=== PATIENT | female | born 1960 | race Caucasian/White ===

== ENCOUNTER 2021-07-30 09:48 | Day surgery (SDC) | payer MEDICAID ==
[2021-07-28 14:02] LABS: BASOPHILS # (AUTO) 0.2 X10'3 (0-0.2); BASOPHILS % (AUTO) 1.2 % (0-1); EOSINOPHILS # (AUTO) 1.6 X10'3 (0-0.9); EOSINOPHILS % (AUTO) 9.9 % (0-6); HEMATOCRIT 36.5 % (35.0-45.0); LYMPHOCYTES # (AUTO) 4.6 X10'3 (1.1-4.8); LYMPHOCYTES % (AUTO) 28.2 % (21-51); MEAN CORPUSCULAR HGB CONC 32.9 g/dL (33.0-36.5); MEAN CORPUSCULAR VOLUME 94.4 FL (78-98); MEAN PLATELET VOLUME 7.6 FL (7.4-10.4); MONOCYTES # (AUTO) 0.8 X10'3 (0-0.9); MONOCYTES % (AUTO) 4.8 % (2-12); NEUTROPHILS # (AUTO) 9.1 X10'3 (1.8-7.7); NEUTROPHILS % (AUTO) 55.9 % (42-75); PLATELET COUNT 429 X10'3 (140-440); RED BLOOD COUNT 3.87 X10'6 (4.20-5.60); RED CELL DISTRIBUTION WIDTH 13.8 % (11.5-14.5); WHITE BLOOD COUNT 16.3 X10'3 (4.5-11.0)
[2021-07-28 14:21] LABS: APTT 27 SECONDS (22-32)
[2021-07-28 14:27] LABS: ALANINE AMINOTRANSFERASE 27 U/L (12-78); ALBUMIN/GLOBULIN RATIO 1.3 (1.1-1.5); ALKALINE PHOSPHATASE 121 IU/L (46-116); ANION GAP 11 (8-16); ASPARTATE AMINO TRANSFERASE 28 U/L (10-37); BILIRUBIN,TOTAL 0.1 MG/DL (0.1-1.0); BLOOD UREA NITROGEN 18 MG/DL (7-18); BUN/CREATININE RATIO 18.6 (6.6-38.0); CALCIUM 9.3 MG/DL (8.5-10.1); CHLORIDE 99 MMOL/L (99-107); CREATININE 0.97 MG/DL (0.40-0.90); GLUCOSE 107 MG/DL (70-104); SODIUM 138 MMOL/L (135-145); TOTAL CARBON DIOXIDE 27.6 MMOL/L (24-32); TOTAL PROTEIN 7.2 G/DL (6.4-8.2); eGFR 58 ML/MIN
[~2021-07-30] VITALS: Ht 162.6 cm; Wt 75.6 kg
[2021-07-30] VITALS (19 sets, daily range): BP systolic 104–136; BP diastolic 43–75
[~2021-07-30 09:48] MED LIST: ATOR20TA PO; BACL10TA2 PO; BETH25TA43 PO; CLON-528 PO; COM10T PO; CYCL-394 PO; DICY10CA88 PO; DOCU250C96 PO; ESOM40CA PO; ESTR1TAB50 PO; GUAI600T45 PO; HYDR50TA4 PO; LOP25T PO; LORA-512 PO; METO10TA3 PO; MONT10TA21 PO; NORCO10T PO; THYR90TA PO; TRAM50TA2 PO; ZALE10CA PO; ZOLM5SPR5 NS
[2021-07-30] MEDS ORDERED: glucagon, human recombinant 1mg kit SUBCUT PRN (10:35)
[2021-07-30] MEDS ORDERED: insulin Lispro (HumaLOG) vial - multi-dose SQ SCH (10:35)
[2021-07-30] MEDS ORDERED: LORazepam 0.5 MG tablet PO PRN (10:35)
[2021-07-30] MEDS ORDERED: nitroGLYCERIN 0.4mg SUBLingual tab SL PRN (10:35)
[2021-07-30] MEDS ORDERED: diphenhydrAMINE 25mg capsule PO PRN (10:35)
[2021-07-30] MEDS ORDERED: DEXTROSE 15 GM of carb/4 tabs (each vial/BOTTLE has 4 tablets) PO PRN ×2 (10:35)
[2021-07-30] MEDS ORDERED: dextrose 50%-water 50ml dispensing syringe IV PRN ×2 (10:35)
[2021-07-30] MEDS ORDERED: normal saline 1,000 ML IV SCH (10:35)
[2021-07-30] MEDS ORDERED: LEVO125T8 PO (10:48)
[2021-07-30] MEDS ORDERED: METF-438 PO (10:48)
[2021-07-30] MEDS ORDERED: OMEP20TA5 PO (10:48)
[2021-07-30] MEDS ORDERED: FURO80TA3 PO (10:48)
[2021-07-30] MEDS ORDERED: ZOLP-240 (10:49)
[2021-07-30] MEDS ORDERED: AMIT100T61 PO (10:49)
[2021-07-30] MEDS ORDERED: GLIP10TA11 PO (10:53)
[2021-07-30] MEDS ORDERED: BISA-155 PO (11:12)
[2021-07-30] MEDS ORDERED: OXYB5TAB16 PO (11:19)
[2021-07-30] MEDS ORDERED: CARV-49 PO (11:19)
[2021-07-30] MEDS ORDERED: LOSA25TA96 PO (11:19)
[2021-07-30] MEDS ORDERED: INSU100I31 (11:19)
[2021-07-30] MEDS ORDERED: DULA1.5P (11:19)
[2021-07-30] MEDS ORDERED: POTA-208 PO (11:19)
[2021-07-30] MEDS ORDERED: NITR0.4T48 SL (11:21)
[2021-07-30] MEDS ORDERED: DIGO-21 PO (11:21)
[2021-07-30] MEDS ORDERED: fentaNYL/PF 50MCG/1 ML 2ML syringe ONE (12:21)
[2021-07-30] MEDS ORDERED: midazolam 1 mg/ML 2ml injection ONE (12:21)
[2021-07-30] MEDS ORDERED: iohexol 350 MG/ML 50ML vial IV ONE (12:22)
[2021-07-30] MEDS ORDERED: iohexol 350MG/ML 100ml bottle IV ONE (12:22)
[2021-07-30] MEDS ORDERED: LIDOcaine 1% (10mg/ml)w/preservative injection 20ml MDV ONE (12:22)
[2021-07-30] MEDS ORDERED: HYDROmorphone 1 mg/ml syringe ONE ×2 (13:03→13:25)
[2021-07-30] MEDS ORDERED: OXAZEpam 15mg capsule PO PRN (14:15)
[2021-07-30] MEDS ORDERED: HYDROcodone/acetaminophen 5mg/325mg tablet PO PRN (14:15)
[2021-07-30] MEDS ORDERED: HYDROcodone/acetaminophen 10/325mg tab PO PRN (14:15)
[2021-07-30] MEDS ORDERED: proCHLORperazine 10 MG/2 ml inj IV PRN (14:15)
[2021-07-30] MEDS ORDERED: ondansetron/PF 4mg/2ml inj IV PRN (14:15)
--- NOTE | 2021-07-30 15:00 | NUR ---
Pt unable to void on bed anton. Pt requests a urinary catheter.
--- NOTE | 2021-07-30 15:30 | NUR ---
[place] catheter inserted without difficulty. Return 425 ml of clear light yellow urine.
--- NOTE | 2021-07-30 18:00 | NUR ---
Written and verbal DC instructions given to pt and , verbalize understanding. Right groin site stable. No bleeding, bruising or hematoma noted. Dressing CD&I.
--- NOTE | 2021-07-30 18:14 | NUR ---
Pt sitting up in bed approx 45 degrees, eating dinner without problems. VSS. Right groin site stable. No bleeding, bruising or hematoma noted.
--- NOTE | 2021-07-30 18:45 | NUR ---
Pt sat up on EOB, groin site stable. Pt amb in hallway with walker, gait steady. No complaints of right groin pain. Pt returned to room PIV DC cath intact. helping pt to get dressed.
--- NOTE | 2021-07-30 19:03 | NUR ---
DC pt to home with . Transferred to private car via WC. Pt able to transfer self to car.
[2021-07-30] MEDS ORDERED: insulin glargine (Lantus) pen - multi-dose SQ SCH (21:00)
[2021-07-31] MEDS ORDERED: pneumococcal 23-VAL P-sac vacc 25 mcg/0.5ml vial IMVAC ONE (17:05)
== END 2021-07-30 19:03 | disposition home or self-care (01) ==
LOC: SSTAY O 09:48
PROVIDERS: ATTEND Internal Medicine Cardiovascular Disease
DX: R94.39 Abnormal result of other cardiovascular function study (principal); R06.09 Other forms of dyspnea; I25.10 Atherosclerotic heart disease of native coronary artery without angina pectoris; G47.33 Obstructive sleep apnea (adult) (pediatric); E78.5 Hyperlipidemia, unspecified; I44.7 Left bundle-branch block, unspecified; Z88.0 Allergy status to penicillin; Z88.1 Allergy status to other antibiotic agents; Z88.8 Allergy status to other drugs, medicaments and biological substances; Z96.641 Presence of right artificial hip joint; Z98.890 Other specified postprocedural states; Z87.891 Personal history of nicotine dependence; Z79.899 Other long term (current) drug therapy; Z79.01 Long term (current) use of anticoagulants
CPT/HCPCS: 36415; 80053; 82948; 85025; 85610; 85730; 93005; 93458; 99152; 99153; C1760; C1769; J1170; J1644; J1815; J2250; J3010; J3490; Q9967; A4620; A6258

== ENCOUNTER 2024-01-05 10:17 | Outpatient (CLI) | payer MEDICARE, MEDICAID ==
[~2024-01-05 10:17] MED LIST changes: +AMIT100T76 PO; -BACL10TA2 PO; -BETH25TA43 PO; +BISA-155 PO; +CARV-49 PO; -CLON-528 PO; +CLON-850 PO; +DIGO-21 PO; +DOCU-395 PO; -DOCU250C96 PO; +DULA1.5P; -ESOM40CA PO; -ESTR1TAB50 PO; +FURO80TA3 PO; +GLIP10TA11 PO; -GUAI600T45 PO; -HYDR50TA4 PO; +INSU100I31; +LEVO125T8 PO; -LOP25T PO; +LOSA-415 PO; +METF-438 PO; +MONT-48 PO; -MONT10TA21 PO; +NITR0.4T48 SL; +OMEP20TA43 PO; +OXYB5TAB21 PO; +POTA-208 PO; -THYR90TA PO; -TRAM50TA2 PO; -ZALE10CA PO; -ZOLM5SPR5 NS; +ZOLP-240
[2024-01-05 11:11] VITALS: PULSE 83; RESP 16; O2SAT 96
== END 2024-01-05 23:59 | disposition home or self-care (01) ==
LOC: RT 10:17
PROVIDERS: ATTEND Nurse Practitioner Pediatrics
DX: R06.09 Other forms of dyspnea (principal)
CPT/HCPCS: 94010; 94760; J7030